=== PATIENT | male | born 1960 | race Native Hawaiian/Other Pacific Islander ===

== ENCOUNTER 2025-03-05 10:21 | Outpatient (CLI) | payer MEDICARE | END 2025-03-05 23:59 | disposition home or self-care (01) | LOC: WOU 10:21 | PROVIDERS: ATTEND Student in an Organized Health Care Education/Training Program | DX: E11.42 Type 2 diabetes mellitus with diabetic polyneuropathy (principal); E11.51 Type 2 diabetes mellitus with diabetic peripheral angiopathy without gangrene; M72.2 Plantar fascial fibromatosis; Z79.84 Long term (current) use of oral hypoglycemic drugs; R60.9 Edema, unspecified; L84 Corns and callosities; B35.1 Tinea unguium | CPT/HCPCS: 73630; G0463 ==

== ENCOUNTER 2025-05-25 09:58 | Outpatient (CLI) | payer MEDICARE, OTHER ==
[2025-05-25] MEDS ORDERED: LIDOCAINE HCL/MPF 1% 30 ML VIAL IJ ONE (11:08)
[2025-05-25] MEDS ORDERED: ETHYL CHLORIDE SPRAY 1 EA BOTTLE TP ONE (11:30)
[2025-05-25] MEDS ORDERED: TRIAMCINOLONE ACETONIDE SUSP 40 MG/ML VIAL IM ONE (11:30)
[2025-05-25] MEDS ORDERED: dexaMETHasone SOD PHOSPHATE 4 MG/ML VIAL IM ONE (11:30)
== END 2025-05-25 23:59 | disposition home or self-care (01) ==
LOC: WOU 09:58
PROVIDERS: ATTEND Student in an Organized Health Care Education/Training Program
DX: M72.2 Plantar fascial fibromatosis (principal); E11.40 Type 2 diabetes mellitus with diabetic neuropathy, unspecified; E11.51 Type 2 diabetes mellitus with diabetic peripheral angiopathy without gangrene; M21.40 Flat foot [pes planus] (acquired), unspecified foot; R60.9 Edema, unspecified; B35.1 Tinea unguium; L84 Corns and callosities; M79.672 Pain in left foot
CPT/HCPCS: 11055; 11721; 20550; J1100; J3301; J3490